=== PATIENT | female | born 1980 | race Caucasian/White ===

== ENCOUNTER 2019-01-03 18:34 | Emergency (ER) | payer OTHER ==
[~2019-01-03] VITALS: Ht 165.1 cm; Wt 76.2 kg
== END 2019-01-03 20:03 | disposition home or self-care (01) ==
LOC: ER 18:34
DX: T78.1XXA Other adverse food reactions, not elsewhere classified, initial encounter (principal); F06.4 Anxiety disorder due to known physiological condition

== ENCOUNTER → 2019-04-30 | Emergency (ER) | payer OTHER ==
[~2019-04-30] VITALS: Ht 167.6 cm; Wt 74.8 kg
== END | disposition home or self-care (01) ==
LOC: ER 21:17
DX: T78.1XXA Other adverse food reactions, not elsewhere classified, initial encounter (principal); L29.8 Other pruritus

== ENCOUNTER 2020-02-07 15:24 | Emergency (ER) | payer OTHER ==
[~2020-02-07] VITALS: Ht 170.2 cm; Wt 72.6 kg
[2020-02-08] MEDS ORDERED: IRON1TAB4 PO (03:02)
[2020-02-08] MEDS ORDERED: CELECOXIB200 MG PO (03:02)
== END 2020-02-08 03:53 | disposition home or self-care (01) ==
LOC: ER 15:24
DX: N20.0 Calculus of kidney (principal); D25.9 Leiomyoma of uterus, unspecified; N93.8 Other specified abnormal uterine and vaginal bleeding; R10.2 Pelvic and perineal pain

== ENCOUNTER → 2020-02-17 | Emergency (ER) | payer OTHER ==
[~2020-02-17] MED LIST: CELECOXIB200 MG PO; IRON1TAB4 PO
== END | disposition left against medical advice (07) ==
LOC: ER 18:16
DX: Z53.20 Procedure and treatment not carried out because of patient's decision for unspecified reasons (principal)

== ENCOUNTER 2022-06-09 11:50 | Emergency (ER) | payer OTHER ==
[~2022-06-09] VITALS: Ht 167.6 cm; Wt 81.2 kg
== END 2022-06-09 22:43 | disposition home or self-care (01) ==
LOC: ER 11:50
DX: D25.9 Leiomyoma of uterus, unspecified (principal); K59.00 Constipation, unspecified

== ENCOUNTER 2024-12-18 18:05 | Emergency (ER) | payer OTHER ==
[~2024-12-18] VITALS: Ht 165.1 cm; Wt 81.6 kg
[2024-12-18] MEDS ORDERED: TOPROL XL25 M1 PO (18:09)
[2024-12-18 18:56] LABS: HEMOGLOBIN 13.7 g/dL (12.0-15.00); MEAN CELL VOLUME 87.8 fL (80.00-100.00); MEAN CORPUSCULAR HEMOGLOBIN 29.4 pg (27.00-32.0); MEAN CORPUSCULAR HGB CONC 33.5 g/dl (32.0-36.0); PLATELET COUNT 324 K/uL (150-450); RED BLOOD COUNT 4.67 M/uL (4.00-6.00); RED CELL DISTRIBUTION WIDTH 13.9 % (11.5-14.5)
[2024-12-18 19:45] LABS: ALBUMIN 3.9 gm/dL (3.4-5.0); BILIRUBIN TOTAL 0.31 mg/dL (0.3-1.2); CALCIUM 9.6 mg/dL (8.5-10.1); CREATININE SERUM 0.78 mg/dL (0.55-1.02); GFR 80.61; GLOBULINA 4.1 G/DL (2.4-3.5); POTASSIUM 3.79 mEq/L (3.5-5.1)
[2024-12-18] MEDS ORDERED: KETOROLAC TROMETHAMINE 60 MG VIAL IM ONE (20:15)
[2024-12-18] MEDS ORDERED: DICLOFENAC SODI75 MG PO (20:21)
== END 2024-12-18 20:42 | disposition home or self-care (01) ==
LOC: ER 18:08
PROVIDERS: Preventive Medicine Public Health & General Preventive Medicine
DX: R07.89 Other chest pain (principal); I10 Essential (primary) hypertension; Z88.8 Allergy status to other drugs, medicaments and biological substances; Z91.018 Allergy to other foods

== ENCOUNTER → 2025-05-13 | Emergency (ER) | payer OTHER ==
[~2025-05-13] VITALS: Ht 170.2 cm; Wt 74.8 kg
[~2025-05-13] MED LIST changes: +DICLOFENAC SODI75 MG PO; +DIPHENHYDRAMINE HCL 50 MG/ML VIAL 1ML IV ONE; +DIPHENHYDRAMINE HCL 50 MG/ML VIAL 1ML ONE; +METHYLPREDNISOLONE SOD SUCC 40 MG VIAL IV ONE; +METHYLPREDNISOLONE SOD SUCC 40 MG VIAL ONE; +TOPROL XL25 M1 PO
== END | disposition home or self-care (01) ==
LOC: ER
DX: T78.49XA Other allergy, initial encounter (principal); X58.XXXA Exposure to other specified factors, initial encounter; T78.3XXA Angioneurotic edema, initial encounter; Z91.018 Allergy to other foods; Z91.010 Allergy to peanuts; Z88.8 Allergy status to other drugs, medicaments and biological substances; I10 Essential (primary) hypertension